=== PATIENT | male | born 1965 | race African-American/Black ===

== ENCOUNTER 2022-09-06 21:22 | Inpatient (IN) | payer OTHER ==
[2022-09-06 22:07] VITALS: RESP 18; BMI 26.2
[2022-09-06] MEDS ORDERED: IBUPROFEN 400 MG TABLET (FP) PO PRN (23:14)
[2022-09-06] MEDS ORDERED: BENZOCAINE/MENTHOL (CHLORASEPTIC ) LOZENGE MM PRN (23:14)
[2022-09-06] MEDS ORDERED: DICYCLOMINE HCL 10 MG CAPSULE PO PRN (23:14)
[2022-09-06] MEDS ORDERED: METHOCARBAMOL 500 MG TABLET PO PRN (23:14)
[2022-09-06] MEDS ORDERED: NALOXONE HCL (KLOXXADO) 8 MG SPRAY NS PRN (23:14)
[2022-09-06] MEDS ORDERED: ONDANSETRON *ODT* 4 MG TABLET SL PRN (23:14)
[2022-09-06] MEDS ORDERED: MAGNESIUM HYDROX 2400MG/30ML ORAL SUSPENSION 30 ML CUP PO PRN (23:14)
[2022-09-06] MEDS ORDERED: MAG HYDROX/AL HYDROX/SIMETH 30 ML UNIT-DOSE CUP PO PRN (23:14)
[2022-09-06] MEDS ORDERED: hydrOXYzine PAMOATE 25 MG CAPSULE (FP) PO PRN (23:14)
[2022-09-06] MEDS ORDERED: BISMUTH SUBSALICYLATE 524 MG/30 ML PO PRN (23:14)
[2022-09-06] MEDS ORDERED: POLYETHYLENE GLYCOL (HEALTHYLAX) 3350 17 GM PACKET PO PRN (23:14)
[2022-09-06] MEDS ORDERED: IBUPROFEN 600 MG TABLET (FP) PO PRN (23:14)
[2022-09-06] MEDS ORDERED: NICOTINE POLACRILEX 2 MG GUM BUC PRN (23:14)
[2022-09-06] MEDS ORDERED: ACETAMINOPHEN 325 MG TABLET (FP) PO PRN ×2 (23:14)
[2022-09-06] MEDS ORDERED: LOPERAMIDE HCL 2 MG CAPSULE PO PRN (23:14)
[2022-09-07 09:51] VITALS: BP 148/88; PULSE 77; TEMP 97.8
[2022-09-07] MEDS ORDERED: PRENATAL VITAMINS W/ FOLIC ACID TABLET (FP) PO SCH (10:00)
[2022-09-07] MEDS ORDERED: NICOTINE 14 MG/24 HOURS TOPICAL PATCH TD SCH (10:00)
[2022-09-07 10:24] LABS: HEMATOCRIT 34.2 % (35.4-49); HEMOGLOBIN 10.9 GM/dL (11.7-16.9); MCH 28.2 pg (25.7-33.7); MEAN CELL VOLUME 88.2 fl (80-96); MEAN PLT VOLUME 8.8 fl (7.5-11.1); PLATELET COUNT 265 10^3/uL (134-434); RBC 3.87 M/mm3 (4.00-5.60); WHITE BLOOD COUNT 5.3 K/mm3 (4.0-10.0)
[2022-09-07 10:58] LABS: CALCIUM 8.4 mg/dL (8.5-10.1)
[2022-09-07 10:59] LABS: ALBUMIN 3.1 g/dl (3.4-5.0); BLOOD UREA NITROGEN 48.3 mg/dL (7-18)
[2022-09-07 11:02] LABS: CREATININE 2.4 mg/dL (0.55-1.3)
[2022-09-07 11:03] LABS: BILIRUBIN,TOTAL 0.5 mg/dL (0.2-1)
[2022-09-07 11:04] LABS: TOT PROT 6.2 g/dl (6.4-8.2)
[2022-09-07 12:11] LABS: HIV INTERPRETATION NEGATIVE (NEGATIVE)
[2022-09-07] MEDS ORDERED: MELATONIN 5 MG TABLETS PO SCH (22:00)
[2022-09-07] MEDS ORDERED: QUEtiapine FUMARATE 50 MG TABLET PO SCH (22:00)
[2022-09-07] MEDS ORDERED: THIAMINE HCL 100 MG TABLET (FP) PO SCH (22:00)
== END 2022-09-07 11:55 | disposition home or self-care (01) | DRG 897 ==
LOC: YASAS 21:22 → Y6N 09-07 03:05
PROVIDERS: ADMIT Allergy & Immunology; ATTEND Allergy & Immunology
PROC: HZ2ZZZZ Detoxification Services for Substance Abuse Treatment (ICD-10-PCS; principal; 2022-09-07)
DX: F10.230 Alcohol dependence with withdrawal, uncomplicated (principal); F14.20 Cocaine dependence, uncomplicated; F19.282 Other psychoactive substance dependence with psychoactive substance-induced sleep disorder; F17.210 Nicotine dependence, cigarettes, uncomplicated; F20.9 Schizophrenia, unspecified; F41.9 Anxiety disorder, unspecified; I12.9 Hypertensive chronic kidney disease with stage 1 through stage 4 chronic kidney disease, or unspecified chronic kidney disease; N18.32 Chronic kidney disease, stage 3b; M17.11 Unilateral primary osteoarthritis, right knee; R60.0 Localized edema; R26.89 Other abnormalities of gait and mobility
CPT/HCPCS: 36415; 80053; 85027; 86780; 87389; 87811; C9803-CS; U0003; U0005

== ENCOUNTER 2022-09-13 15:53 | Inpatient (IN) | payer OTHER ==
[2022-09-13 16:54] VITALS: BMI 28.7
[2022-09-13] MEDS ORDERED: ACETAMINOPHEN 325 MG TABLET (FP) PO PRN ×2 (18:46)
[2022-09-13] MEDS ORDERED: IBUPROFEN 600 MG TABLET (FP) PO PRN (18:46)
[2022-09-13] MEDS ORDERED: BISMUTH SUBSALICYLATE 524 MG/30 ML PO PRN (18:46)
[2022-09-13] MEDS ORDERED: MAG HYDROX/AL HYDROX/SIMETH 30 ML UNIT-DOSE CUP PO PRN (18:46)
[2022-09-13] MEDS ORDERED: ONDANSETRON *ODT* 4 MG TABLET SL PRN (18:46)
[2022-09-13] MEDS ORDERED: IBUPROFEN 400 MG TABLET (FP) PO PRN (18:46)
[2022-09-13] MEDS ORDERED: POLYETHYLENE GLYCOL (HEALTHYLAX) 3350 17 GM PACKET PO PRN (18:46)
[2022-09-13] MEDS ORDERED: guaiFENesin 200 MG/10 ML 10 ML UNIT-DOSE CUPS PO PRN (18:46)
[2022-09-13] MEDS ORDERED: MAGNESIUM HYDROX 2400MG/30ML ORAL SUSPENSION 30 ML CUP PO PRN (18:46)
[2022-09-13] MEDS ORDERED: P-EPHED 60MG/TRIPROLIDI 2.5MG TABLET PO PRN (18:46)
[2022-09-13] MEDS ORDERED: LOPERAMIDE HCL 2 MG CAPSULE PO PRN (18:46)
[2022-09-13] MEDS ORDERED: DICYCLOMINE HCL 10 MG CAPSULE PO PRN (18:46)
[2022-09-13] MEDS ORDERED: BENZOCAINE/MENTHOL (CHLORASEPTIC ) LOZENGE MM PRN (18:46)
[2022-09-13] MEDS: hydrOXYzine PAMOATE 25 MG CAPSULE (FP) PO PRN (19:27)
[2022-09-13] MEDS: LISINOPRIL 10 MG TABLET PO SCH (19:27)
[2022-09-13] MEDS: METHOCARBAMOL 500 MG TABLET PO PRN (19:27)
[2022-09-13] MEDS: MELATONIN 5 MG TABLETS PO PRN (21:57)
[2022-09-13] MEDS: THIAMINE HCL 100 MG TABLET (FP) PO SCH (21:58)
[2022-09-14] MEDS: PRENATAL VITAMINS W/ FOLIC ACID TABLET (FP) PO SCH (09:55)
[2022-09-14] MEDS: LISINOPRIL 10 MG TABLET PO SCH (09:55)
[2022-09-14] MEDS ORDERED: LORazepam 1 MG TABLET PO PRN (10:40)
[2022-09-14] MEDS: LORazepam 2 MG TABLET PO SCH ×2 (17:57→22:43)
[2022-09-14] MEDS ORDERED: QUEtiapine FUMARATE 50 MG TABLET PO SCH (22:00)
[2022-09-14] MEDS: THIAMINE HCL 100 MG TABLET (FP) PO SCH (22:43)
[2022-09-14] MEDS: MELATONIN 5 MG TABLETS PO PRN (22:43)
[2022-09-14] MEDS: QUEtiapine FUMARATE 50 MG TABLET PO SCH (22:44)
[2022-09-15] MEDS: LORazepam 1 MG TABLET PO SCH ×4 (05:30→22:33)
[2022-09-15] MEDS: PRENATAL VITAMINS W/ FOLIC ACID TABLET (FP) PO SCH (10:15)
[2022-09-15] MEDS: LISINOPRIL 10 MG TABLET PO SCH (10:16)
[2022-09-15] MEDS: QUEtiapine FUMARATE 50 MG TABLET PO SCH (22:32)
[2022-09-15] MEDS: THIAMINE HCL 100 MG TABLET (FP) PO SCH (22:32)
[2022-09-16] MEDS ORDERED: LORazepam 0.5 MG TABLET PO PRN
[2022-09-16] MEDS: LORazepam 0.5 MG TABLET PO SCH ×4 (05:27→22:08)
[2022-09-16] MEDS: PRENATAL VITAMINS W/ FOLIC ACID TABLET (FP) PO SCH (10:22)
[2022-09-16] MEDS: LISINOPRIL 10 MG TABLET PO SCH (10:22)
[2022-09-16] MEDS: METHOCARBAMOL 500 MG TABLET PO PRN (13:33)
[2022-09-16] MEDS: hydrOXYzine PAMOATE 25 MG CAPSULE (FP) PO PRN ×2 (13:33→17:31)
[2022-09-16] MEDS: MELATONIN 5 MG TABLETS PO PRN (22:07)
[2022-09-16] MEDS: QUEtiapine FUMARATE 50 MG TABLET PO SCH (22:08)
[2022-09-16] MEDS: THIAMINE HCL 100 MG TABLET (FP) PO SCH (22:09)
[2022-09-17] MEDS ORDERED: LORazepam 0.5 MG TABLET PO ONE (05:00)
[2022-09-17] MEDS: hydrOXYzine PAMOATE 25 MG CAPSULE (FP) PO PRN ×2 (06:21→10:00)
[2022-09-17] MEDS: METHOCARBAMOL 500 MG TABLET PO PRN (06:21)
[2022-09-17] MEDS: PRENATAL VITAMINS W/ FOLIC ACID TABLET (FP) PO SCH (10:00)
[2022-09-17] MEDS: LISINOPRIL 10 MG TABLET PO SCH (10:00)
[2022-09-17 13:30] VITALS: RESP 18
[2022-09-17 17:22] VITALS: BP 154/87; PULSE 80; TEMP 98
== END 2022-09-17 16:47 | DRG 896 ==
LOC: YASAS 15:53 → UNDOADMIN 18:45 → Y6N 18:45
PROVIDERS: ADMIT Allergy & Immunology; ATTEND Family Medicine
PROC: HZ2ZZZZ Detoxification Services for Substance Abuse Treatment (ICD-10-PCS; principal; 2022-09-13)
DX: F10.230 Alcohol dependence with withdrawal, uncomplicated (principal); U07.1 COVID-19; F14.20 Cocaine dependence, uncomplicated; R45.851 Suicidal ideations; F17.210 Nicotine dependence, cigarettes, uncomplicated; F20.9 Schizophrenia, unspecified; F10.282 Alcohol dependence with alcohol-induced sleep disorder; I12.9 Hypertensive chronic kidney disease with stage 1 through stage 4 chronic kidney disease, or unspecified chronic kidney disease; N18.30 Chronic kidney disease, stage 3 unspecified; M17.11 Unilateral primary osteoarthritis, right knee; R60.0 Localized edema
CPT/HCPCS: 87811; C9803-CS; U0003; U0005